=== PATIENT | male | born 1960 | race Two or more races ===

== ENCOUNTER 2022-05-28 06:38 | Day surgery (SDC) | payer OTHER ==
[~2022-05-28] VITALS: Ht 175.3 cm; Wt 79.8 kg
[~2022-05-28 06:38] MED LIST: CAMBIA50 MG PO; ECOTRIN81 MG PO; GLUCOSAMI PO; MAGNES PO; VITAMIN B PO
== END 2022-05-28 16:45 | disposition home or self-care (01) ==
LOC: CIR.AMB 06:38
PROVIDERS: ATTEND Specialist
DX: K40.90 Unilateral inguinal hernia, without obstruction or gangrene, not specified as recurrent (principal); I10 Essential (primary) hypertension; F17.210 Nicotine dependence, cigarettes, uncomplicated
CPT/HCPCS: 49505; C1781